=== PATIENT | female | born 1990 | race Caucasian/White ===

== ENCOUNTER 2023-08-18 22:10 | Emergency (ER) | payer MEDICAID ==
[~2023-08-18] VITALS: Ht 154.9 cm; Wt 78.0 kg
[2023-08-18 22:25] VITALS: BP 125/62; RESP 16; TEMP 98.6; O2SAT 99
[2023-08-18 22:26] VITALS: PULSE 101
[2023-08-19] MEDS ORDERED: CEPH500C2 MT (02:23)
== END 2023-08-19 04:03 | disposition home or self-care (01) ==
LOC: ER 22:10
DX: L73.9 Follicular disorder, unspecified (principal)
CPT/HCPCS: 99283